=== PATIENT | male | born 1970 | race Caucasian/White ===

== ENCOUNTER → 2018-08-21 09:29 | Outpatient (CLI) | payer OTHER, SELFPAY ==
--- NOTE | 2018-08-21 09:37 | US_ITS ---
STUDY: RENAL ULTRASOUND - COMPLETE REASON FOR EXAM: Male, 48 years old. Hematuria TECHNIQUE: Ultrasound evaluation of the kidneys was performed with real-time and static kline-scale imaging. COMPARISON: None. FINDINGS: RIGHT KIDNEY: Normal location of the right kidney, which is normal in size. The right kidney measures 11.3 x 5.5 x 5.7 cm. There is a normal cortex of the right kidney. The renal cortex measures 1.7 cm. There is no right renal mass or cyst. There are no right renal calculi. There is no right hydronephrosis. DISTAL RIGHT URETER: There is non-visualization of the distal right ureter. There is no demonstrated right ureterovesical junction calculus. There is a visualized right ureteral jet. LEFT KIDNEY: Normal location of the left kidney, which is normal in size. The left kidney measures 12.2 x 4.7 x 4.3 cm. There is a normal cortex of the left kidney. The renal cortex measures 1.6 cm. There is no left renal mass or cyst. There are no left renal calculi. There is no left hydronephrosis. DISTAL LEFT URETER: There is non-visualization of the distal left ureter. There is no demonstrated left ureterovesical junction calculus. There is a visualized left ureteral jet. AORTA: There is no elongation or tortuosity of the abdominal aorta. I.V.C.: The IVC is patent. BLADDER: The distended urinary bladder has a volume of 47.63 ml. The empty urinary bladder has a volume of 9.75 ml. There is a normal wall thickness of the distended urinary bladder. There is no demonstrated mass within the urinary bladder. There are no demonstrated bladder calculi. US/Kidney and Bladder IMPRESSION: No suspicious sonographic findings Electronically Signed: Carlos Enrique Bray MD at 12:14 EST , Service support ,
== END ==
PROVIDERS: Family Provider Internal Medicine; PCP Internal Medicine; Referring Provider Urology; Visit Provider Urology
DX: R31.9 Hematuria, unspecified (principal)
CPT/HCPCS: 76770

== ENCOUNTER 2018-12-12 03:37 | Emergency (ER) | payer OTHER, SELFPAY ==
[2018-12-12 03:38] VITALS: BP 132/80; PULSE 83; RESP 20; TEMP 36.8; O2SAT 99; BMI 27.4
--- NOTE | 2018-12-12 03:49 | RAD_ITS ---
STUDY: X-RAY - ACUTE ABDOMINAL SERIES REASON FOR EXAM: Male, 48 years old. Abdominal pain TECHNIQUE: Single view of the chest. Supine, and upright. view(s) of the abdomen were obtained. COMPARISON: CT abdomen and pelvis from 07/09/1950 FINDINGS: The lungs are clear and expanded. Normal size heart. Normal mediastinum and susan. Normal visualized pulmonary arteries. Normal visualized aortic arch and descending thoracic aorta. There is gaseous distention of the entire without volvulus pattern. There is relative paucity of small bowel gas visualized. The soft tissue structures of the abdomen and pelvis are unremarkable. Normal visualized osseous structures. RAD/Acute Abdomen Inc Chest IMPRESSION: No evidence for acute cardiopulmonary disease. This is diffuse gaseous distention of the colon. Relative paucity of small bowel gas. Further evaluation with CT may be of value. Electronically Signed: Fortunato Cardona, at 4:28 EDT Tel , Service support ,
[2018-12-12 03:56] LABS: Absolute Lymphocyte Count 2.31 X10^3/ul (0.83-4.51); Absolute Neutrophil Count 5.2 X10^3/uL (2.0-7.7); Basophil# 0.06 X10^3/uL; Basophil% 0.7 % (0-1); Eosinophil# 0.18 X10^3/uL; Eosinophils% 2.1 % (0-5); Hematocrit 44.4 % (40-54); Hemoglobin 15.6 g/dl (13.0-16.5); Lymphocyte # 2.31 X10^3/ul (4.0); Lymphocyte % 26.5 % (19-41); Mean Corp Hgb Conc 35.1 g/gl (32-36); Mean Corpuscular Hgb 29.1 pg (27.0-32.0); Mean Corpuscular Volume 82.7 fL (80-94); Mean Platelet Vol. 10.2 fl (6.2-12.0); Monocyte# 0.94 X10^3/uL; Monocyte% 10.8 % (0-10); Neutrophil # 5.16 X10^3/uL (2.7-7.7); Platelet Count 249 K/mm3 (150-450); RBC Distribution Width CV 12.3 % (11.6-14.6); RBC Distribution Width SD 37.1 fl (35.1-43.9); Red Blood Count 5.37 M/mm3 (4.6-6.2); White Blood Count 8.7 K/mm3 (4.4-11.0)
[2018-12-12] MEDS: Morphine 4 MG/ML Syringe IV (03:56)
[2018-12-12] MEDS: Ondansetron 4 MG/2 ML Vial IV (03:56)
[2018-12-12] MEDS: 0.9% Normal Saline 1,000 ML 150 ML IV (03:57)
[2018-12-12 03:58] LABS: POSITIVE COUNT NO; POSITIVE DIFFERENTIAL NO; POSITIVE MORPHOLOGY NO
[2018-12-12 03:59] VITALS: BP 125/86; PULSE 79; RESP 16; O2SAT 96
[2018-12-12 04:18] LABS: AST(SGOT) 23 U/L (15-37); Alanine Aminotransfer ALT/SGPT 47 U/L (16-61); Albumin, Serum 3.9 g/dL (3.2-5.0); Alkaline Phosphatase 87 U/L (45-117); Anion Gap 8 (5-15); BUN 12 mg/dL (7-18); BUN/Creat Ratio 13.4 RATIO (10-20); Bilirubin, Direct 0.09 mg/dL (0.00-0.30); Calcium,Total 8.2 mg/dL (8.5-10.1); Chloride 108 mmol/L (98-107); Creatinine, Serum 0.89 mg/dL (0.70-1.30); EST Glomerular Filtration Rate 96 mL/min (>60); Est Glom Filt Rate - Afr Amer 116 mL/min (>60); Globulin 3.1 g/dL (2.2-4.2); Glucose 119 mg/dL (74-106); Potassium 3.7 mmol/L (3.5-5.1); Sodium Level 143 mmol/L (136-145)
--- NOTE | 2018-12-12 04:34 | CT_ITS ---
STUDY: CT ABDOMEN AND PELVIS WITHOUT CONTRAST REASON FOR EXAM: Male, 48 years old. Lower abdominal pain RADIATION DOSAGE (If Supplied By Facility): CTDIvol = ( 6.73 ) mGy, DLP = ( 393.21 ) mGycm TECHNIQUE: Transaxial images were obtained from the dome of the diaphragm to the symphysis pubis without oral contrast, and without intravenous contrast. Sagittal and coronal images were reconstructed. Individualized dose optimization techniques were used for this CT. COMPARISON: CT abdomen and pelvis from 07/09/2014 FINDINGS: The visualized lung bases are unremarkable. The visualized portions of the heart are within normal limits. Normal liver. Normal gallbladder and extrahepatic biliary system. Normal spleen. Normal pancreas. Normal bilateral adrenal glands. Normal right kidney. Normal left kidney. Normal visualized stomach. Normal small intestine. There is diffuse gaseous distention of the colon there are areas of moderate retained stool in the colon. No abnormal areas of wall thickening visualized. Gas is seen within the rectum. No evidence for pneumatosis or free air. The appendix is visualized and appears normal. Normal abdominal aorta. Normal inferior vena cava. Normal retroperitoneum. Normal urinary bladder. There is a small fat-containing umbilical hernia. There are diffuse degenerative changes of the visualized lumbar spine. There are chronic appearing bilateral L4 pars defects without anterolisthesis. CT/Abdomen/Pelvis without Cont IMPRESSION: Diffuse gaseous dilatation of the colon without evidence for volvulus or obstruction. Scattered areas of moderate fecal retention within the colon. Electronically Signed: Fortunato Cardona, at 5:17 EDT Tel , Service support ,
[2018-12-12] MEDS: HYDROmorphone 0.5 MG/0.5 ML SYRINGE IV (04:38)
--- NOTE | 2018-12-12 05:42 | ED.VISSUMM ---
- ER Visit Summary Date of Service: 12/12/18 Chief Complaint: Abdominal pain History of Present Illness: The patient is a 48 M who woke at 130 this morning with abdominal pain and bloating. He is unable to pass gas. He states he felt fine when he went to bed. He has felt nauseated but not vomited. He does have an umbilical hernia but that area is not tender. He has had no prior abdominal surgeries. Physical Examination: Vital signs unremarkable. Head neck examination unremarkable. Heart is regular rate and rhythm. Lung sounds are clear. Abdomen is distended with diffuse tenderness and guarding. Hypoactive bowel sounds are noted. Umbilical hernia is present but not tender. Test Results: CBC and chemistry studies along with LFTs are normal. Acute abdominal series shows diffuse gaseous distention of the colon with paucity of small bowel gas. CT is recommended. CT flank shows diffuse gaseous distention of the colon without volvulus or obstruction. Moderate fecal retention is noted. Emergency Department Course and Treatment: Patient initially received morphine and Zofran followed by a dose of Dilaudid. On repeat examination patient is resting more comfortably. He has been passing gas and feels improved. I offered to do a soapsuds enema here but he declined. He will be given a prescription for mag citrate. Treatment Plan: [] Disposition: Discharge Impression: Abdominal pain with constipation This note was generated with [employer] dictation software. It may contain incorrect words, spelling, and punctuation that were not noted in review of the chart prior to signing ED Disposition - Plan for ED Patient: Disposition: Home or Assisted Living Instructions: ED Constipation Prescriptions: Magnesium Citrate [Citrate Of Magnesia] 150 ml PO Q6H PRN PRN #300 ml PRN Reason: Constipation Referrals: Sahara Vidales [Primary Care Provider] - 1-2 Days if not improving
[2018-12-12 06:01] VITALS: BP 103/74; PULSE 73; RESP 18; O2SAT 97
== END 2018-12-12 06:05 | disposition home or self-care (01) ==
PROVIDERS: Emergency Provider Emergency Medicine; Family Provider Internal Medicine; PCP Internal Medicine
DX: K59.00 Constipation, unspecified (principal); R10.84 Generalized abdominal pain
CPT/HCPCS: 74022; 74176; 80048; 80076; 85025; 96361; 96374; 96375; 99283; J7030; A4216; J2405